=== PATIENT | male | born 1965 | race Caucasian/White ===

== ENCOUNTER 2020-09-28 20:56 | Emergency (ER) | payer BC, OTHER ==
[~2020-09-28] VITALS: Ht 180.3 cm; Wt 88.6 kg
[~2020-09-28 20:56] MED LIST: ACET-3068 PO; ASPI-41 PO; ATOR10TA PO; DOCU100C40 PO; LEVO750T46 PO; LISI-790 PO; LOP25T PO
[2020-09-28 21:01] VITALS: BP 140/75
[2020-09-28] MEDS ORDERED: TETanus/Pertussis (Acell)/Diphther VAC/PF (Tdap-Adult) 0.5ml syringe IMVAC ONE (21:35)
[2020-09-28] MEDS ORDERED: LIDOcaine 1% W/epiNEPHrine 1:200,000 10ml vial IJ ONE (21:35)
[2020-09-28] MEDS ORDERED: bacitracin 15gm ointment TP ONE (22:15)
[2020-09-28] MEDS ORDERED: CEPH250T PO (22:25)
== END 2020-09-28 22:35 | disposition home or self-care (01) ==
LOC: ER 20:59
DX: S61.313A Laceration without foreign body of left middle finger with damage to nail, initial encounter (principal); I10 Essential (primary) hypertension; E11.9 Type 2 diabetes mellitus without complications; Z98.890 Other specified postprocedural states; Z72.89 Other problems related to lifestyle; Z88.5 Allergy status to narcotic agent; Z79.82 Long term (current) use of aspirin; Z79.899 Other long term (current) drug therapy; W26.0XXA Contact with knife, initial encounter; Y93.89 Activity, other specified; Y92.89 Other specified places as the place of occurrence of the external cause; Y99.8 Other external cause status
CPT/HCPCS: 11730; 90471; 90715; 99284